=== PATIENT | female | born 1995 | race Caucasian/White ===

== ENCOUNTER 2017-05-06 11:56 | Emergency (ER) | payer OTHER ==
[~2017-05-06] VITALS: Ht 162.6 cm; Wt 57.2 kg
[2017-05-06 12:30] VITALS: BP 120/66
[2017-05-06] MEDS ORDERED: TDAP [DIPH/PERTUSSIS/TET] 0.5 ML VIAL IM ONE ×2 (12:49→12:56)
[2017-05-06] MEDS ORDERED: TDAP [DIPH/PERTUSSIS/TET] 0.5 ML VIAL IM STA (12:49)
[2017-05-06] MEDS ORDERED: LIDOCAINE /MPF 1% VIAL 5 ML VIAL ONE (12:56)
[2017-05-06] MEDS ORDERED: LIDOCAINE 1% INJ 50 ML MDV IJ ONE (13:00)
== END 2017-05-06 13:04 | disposition home or self-care (01) ==
LOC: ER 12:00
DX: S61.213A Laceration without foreign body of left middle finger without damage to nail, initial encounter (principal); E03.9 Hypothyroidism, unspecified; Z23 Encounter for immunization; W27.2XXA Contact with scissors, initial encounter; Y93.89 Activity, other specified; Y92.89 Other specified places as the place of occurrence of the external cause; Y99.9 Unspecified external cause status
CPT/HCPCS: 12001; 90471; 90715; 99283; A4606; J3490; Z7610